=== PATIENT | male | born 1995 | race Caucasian/White ===

== ENCOUNTER 2019-07-05 10:54 | Emergency (ER) | payer OTHER ==
--- NOTE | 2019-07-05 11:24 | ED Physician Documentation ---
PD HPI BACK PAIN - Stated complaint Stated Complaint: L BACK PAIN - Chief complaint Chief Complaint: Trauma Ch/Bk - History obtained from History obtained from: Patient (24-year-old male comes in today with a wart chief complaint of 1 day history of midline lower back pain. He states he was bending over to put his shoes on he felt sharp pain in his lower back. He denies any numbness or tingling to his lower extremities or any weakness, he denies any saddle anesthesia to his groin. He does admit to having lower back pain in the past when doing heavy lifting, but he has not lifted weights in over a year. He has taken nothing to relieve this pain.He also states that he noted some scrotal pain this morning, kind of diffuse. He denies any edema, ecchymosis, dysuria, hematuria, discharge. He does admit to having STD approximately 2 years ago was treated and is had no issues since then. Denies any past history of inguinal hernia.) Review of Systems Constitutional: reports: Reviewed and negative Eyes: reports: Reviewed and negative Ears: reports: Reviewed and negative Nose: reports: Reviewed and negative Throat: reports: Reviewed and negative Cardiac: reports: Reviewed and negative Respiratory: reports: Reviewed and negative GI: reports: Reviewed and negative : reports: Testicular pain. denies: Dysuria, Frequency, Hesitancy, Discharge, Testicular mass Skin: denies: Rash, Lesions Musculoskeletal: reports: Back pain (Midline lower back) Neurologic: reports: Reviewed and negative PD PAST MEDICAL HISTORY - Past Medical History Musculoskeletal: Other (Mid line lower back pain, 2 years ago.) PD ED PE NORMAL - General General: Alert and oriented X 3, No acute distress, Well developed/nourished - HEENT HEENT: Atraumatic, PERRL, EOMI, Ears normal - Neck Neck: No adenopathy - Cardiac Cardiac: RRR, No murmur - Respiratory Respiratory: No respiratory distress, Clear bilaterally - Abdomen Abdomen: Soft, Non tender - Derm Derm: Normal color, Warm and dry, No rash - Extremities Extremities: No deformity, No tenderness to palpate, Normal ROM s pain, No edema, No calf tenderness / cord - Neuro Neuro: Alert and oriented X 3, 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 No: Skin lesions, Tenderness - Back Back: Vertebral tenderness, Limited ROM. No: Soft tissue tenderness, Straight leg raise + R, Straight leg raise + L Results - Vitals Vitals: Vital Signs - 24 hr 07/05/19 10:58 Temperature 36.7 C Heart Rate 78 Respiratory 20 Rate Blood Pressure 132/82 H O2 Saturation 100 Oxygen O2 Source Room air - Labs Labs: Laboratory Tests 07/05/19 11:19 Urine Color YELLOW Urine Clarity CLEAR Urine pH 6.0 Ur Specific [place] 1.020 Urine Protein NEGATIVE Urine Glucose (UA) NEGATIVE Urine Ketones NEGATIVE Urine Occult Blood NEGATIVE Urine Nitrite NEGATIVE Urine Bilirubin NEGATIVE Urine Urobilinogen 0.2 (NORMAL) Ur Leukocyte Esterase NEGATIVE Ur Microscopic Review NOT INDICATED Urine Culture Comments NOT INDICATED - Rads (name of study) No standard instances Radiology: Final report received (Final impression:) PD MEDICAL DECISION MAKING - ED course Complexity details: reviewed results, re-evaluated patient, d/w patient Departure - Departure Disposition: 01 Home, Self Care Clinical Impression: Lumbar strain Qualifiers: Encounter type: initial encounter Qualified Code(s): S39.012A - Strain of muscle, fascia and tendon of lower back, initial encounter Condition: Good Instructions: ED Back Care Tips, ED Low Back Pain Injury Comments: You can take ibuprofen 600-800 mg three times a day for lower back pain staring this evening. starting tomorrow start doing gentle stretching / range of motion with your lower back. Follow up with your primary care provider in one week, sooner if your symptoms worsen. Limit lifting, pushing, or pulling more than 5 pounds over the next week. Forms: Activity restrictions
[2019-07-05 11:31] LABS: BILIRUBIN,URINE NEGATIVE (NEGATIVE); CLARITY,URINE CLEAR (CLEAR); GLUCOSE, URINE (UA) NEGATIVE (NEGATIVE); KETONES,URINE (UA) NEGATIVE (NEGATIVE); LEUKOCYTE ESTERASE, URINE NEGATIVE (NEGATIVE); NITRITE,URINE NEGATIVE (NEGATIVE); OCCULT BLOOD,URINE NEGATIVE (NEGATIVE); PROTEIN,URINE NEGATIVE (NEGATIVE); UROBILINOGEN,URINE 0.2 (NORMAL) E.U./dL (NORMAL)
--- NOTE | 2019-07-05 11:50 | XRAY Report ---
Reason: LBP x 1 day, new onset. Procedure Date: 07/05/2019 Accession Number: [id number] / [id number] Procedure: XR - Lumbar Spine 2 View CPT Code: Final Report FULL RESULT: EXAM: LUMBOSACRAL SPINE RADIOGRAPHY EXAM DATE: 07/05/2019 11:39 AM. CLINICAL HISTORY: LBP x 1 day, new onset. COMPARISONS: None. TECHNIQUE: 2 views. FINDINGS: Alignment: Mild dextroscoliosis apex L2. Slight retrolisthesis of L3 with respect to L4 and L2 with respect to L3. Bones: Five [id number] lumbar vertebral bodies are present. No fractures or bone lesions. Disks: Disk heights are maintained. Facets: No degenerative changes. Sacroiliac Joints: Unremarkable. Soft Tissues: Unremarkable. IMPRESSION: Lumbar dextroscoliosis and mild vertebral body offset. Otherwise negative. [facility]
[2019-07-05] MEDS ORDERED: KETOROLAC 60 MG/2 ML VIAL IM STA (12:00)
[2019-07-05 12:27] VITALS: BP 153/88
[2019-07-05 21:20] LABS: TRICHOMONAS VAGINALIS DNA NEGATIVE (NEGATIVE)
== END 2019-07-05 12:29 | disposition home or self-care (01) ==
LOC: ED 10:54
DX: S39.012A Strain of muscle, fascia and tendon of lower back, initial encounter (principal); X58.XXXA Exposure to other specified factors, initial encounter; Y93.89 Activity, other specified
CPT/HCPCS: 72100; 81001; 81003; 87086; 87491; 87591; 87661; 96372; 99284